=== PATIENT | male | born 2000 | race American Indian/Alaskan Native ===

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

== ENCOUNTER 2020-04-14 12:31 | Emergency (ER) | payer MEDICAID ==
[2020-04-14 12:34] VITALS: BP 114/53
--- NOTE | 2020-04-14 12:47 | Event Note ---
ED Screening Note ED Screening Note: WAS WORKING OUT AND FELT POP IN HIS BACK WHEN DOING PUSH UPS HES BEEN LIFTING A LOT TOO MUCH EARLIER THIS WEEK HE ALSO INJURED SHOULDER LIFTING HE NOW IS HAVING TAKING DEEP BREATH This initial assessment/diagnostic orders/clinical plan/treatment(s) is/are subject to change based on patients health status, clinical progression and re- assessment by fellow clinical providers in the ED. Further treatment and workup at subsequent clinical providers discretion. Patient/guardian urged not to elope from the ED as their condition may be serious if not clinically assessed and managed. Initial orders include: XRAY TO RO FX/ PNEUMO Vital Signs 04/14/20 12:32 Temperature 98.8 F Pulse Rate 59 L Respiratory 16 Rate Blood Pressure 114/53 [Right] O2 Sat by Pulse 99 Oximetry
--- NOTE | 2020-04-14 13:31 | XRay Report ---
THORACIC SPINE 3 VIEWS INDICATION / CLINICAL INFORMATION: SOB P FEELING A POP IN HIS THORACIC SPINE. COMPARISON: None available. FINDINGS: VERTEBRAE: No fracture. No significant malalignment. DISC SPACES:No significant abnormality. ADDITIONAL FINDINGS: None. IMPRESSION: 1. No significant abnormality. Signer Name: Jimenez Chaudhary MD Signed: 04/14/2020 1:27 PM Workstation Name: [id number]
--- NOTE | 2020-04-14 13:32 | XRay Report ---
CHEST 2 VIEWS INDICATION / CLINICAL INFORMATION: SOB. COMPARISON: None available. FINDINGS: SUPPORT DEVICES: None. HEART / MEDIASTINUM: No significant abnormality. LUNGS / PLEURA: No significant pulmonary or pleural abnormality. No pneumothorax. ADDITIONAL FINDINGS: No significant additional findings. IMPRESSION: 1. No acute findings. Signer Name: Jimenez Chaudhary MD Signed: 04/14/2020 1:27 PM Workstation Name: [id number]
--- NOTE | 2020-04-14 14:07 | Emergency Department Report ---
ED Back Pain/Injury HPI - General Chief Complaint: Back Pain/Injury Stated Complaint: BACK STRAIN Time Seen by Provider: 04/14/20 12:44 Source: patient Limitations: No Limitations - History of Present Illness Initial Comments: This is a pleasant 19-year-old male presents emergency department with chief complaint of pain in the left shoulder as well as the left latissimus dorsi area. Patient reports he was doing push-ups and felt a pop and some pain in his shoulder followed by pain in the left side over the LAT area. He reports since then he has been having some dull achy pain he rates as a 6 out of 10 denies any radiating pain. He denies any additional injuries. Denies any known past medical history, current medication use or known allergies to medications. - Related Data Previous Rx's Medication Instructions Recorded Last Taken Type Ibuprofen [Motrin] 400 mg PO Q8H PRN #12 tablet 03/06/16 Unknown Rx methylPREDNISolone [Medrol] 4 mg PO DAILY #1 tab.ds.pk 03/06/16 Unknown Rx Naproxen [Naprosyn TAB] 500 mg PO BID #20 tablet 04/14/20 Unknown Rx Allergies Allergy/AdvReac Type Severity Reaction Status Date / Time No Known Allergies Allergy Unverified 03/06/16 13:08 ED Review of Systems ROS: Stated complaint: BACK STRAIN Other details as noted in HPI Comment: All other systems reviewed and negative Constitutional: denies: chills, fever Eyes: denies: eye pain, eye discharge, vision change ENT: denies: ear pain, throat pain Respiratory: denies: cough, shortness of breath, wheezing Cardiovascular: denies: chest pain, palpitations Endocrine: no symptoms reported Gastrointestinal: denies: abdominal pain, nausea, diarrhea Genitourinary: denies: urgency, dysuria Musculoskeletal: as per HPI, back pain, arthralgia. denies: joint swelling Skin: denies: rash, lesions Neurological: denies: headache, weakness, paresthesias Psychiatric: denies: anxiety, depression Hematological/Lymphatic: denies: easy bleeding, easy bruising ED Past Medical Hx - Past Medical History Previous Medical History?: No - Surgical History Past Surgical History?: No - Family History Family history: no significant - Social History Smoking Status: Never Smoker Substance Use Type: None - Medications Home Medications: Home Medications Medication Instructions Recorded Confirmed Last Taken Type Ibuprofen [Motrin] 400 mg PO Q8H PRN #12 tablet 03/06/16 Unknown Rx methylPREDNISolone [Medrol] 4 mg PO DAILY #1 tab.ds.pk 03/06/16 Unknown Rx Naproxen [Naprosyn TAB] 500 mg PO BID #20 tablet 04/14/20 Unknown Rx ED Physical Exam - General Limitations: No Limitations General appearance: alert, in no apparent distress - Head Head exam: Present: atraumatic, normocephalic - Eye Eye exam: Present: normal appearance, PERRL, EOMI Pupils: Present: normal accommodation - ENT ENT exam: Present: normal exam, normal orophraynx, mucous membranes moist - Neck Neck exam: Present: normal inspection, full ROM. Absent: tenderness, meningismus - Respiratory Respiratory exam: Present: normal lung sounds bilaterally. Absent: respiratory distress, wheezes, rales, rhonchi, stridor - Cardiovascular Cardiovascular Exam: Present: regular rate, normal rhythm, normal heart sounds. Absent: systolic murmur, diastolic murmur, rubs, gallop - GI/Abdominal GI/Abdominal exam: Present: soft, normal bowel sounds. Absent: distended, tenderness, guarding, rigid - Rectal Rectal exam: Present: deferred - Extremities Exam Extremities exam: Present: normal inspection, full ROM, other (There is no pain with Vega sign of the left shoulder, negative ). Absent: tenderness, calf tenderness - Back Exam Back exam: Present: normal inspection, full ROM, tenderness (There is mild tenderness to the left latissimus dorsi area at the level of the thoracic spine. No midline thoracic spine tenderness. This extends into the left serratus anterior muscle area) - Neurological Exam Neurological exam: Present: alert, oriented X3, normal gait. Absent: motor sensory deficit - Psychiatric Psychiatric exam: Present: normal affect, normal mood - Skin Skin exam: Present: warm, dry, intact, normal color. Absent: rash ED Course Vital Signs 04/14/20 12:32 Temperature 98.8 F Pulse Rate 59 L Respiratory 16 Rate Blood Pressure 114/53 [Right] O2 Sat by Pulse 99 Oximetry ED Medical Decision Making - Radiology Data Radiology results: report reviewed X-ray of the thoracic spine was ordered in triage and unremarkable per radiology X-ray of the chest PA and lateral was ordered in triage and unremarkable per radiology - Medical Decision Making Patient is nontoxic in no acute distress. Vitals are stable. Chest x-ray and thoracic x-ray were ordered in triage and unremarkable. The patient had tenderness over the left latissimus muscle. Suspect is likely due to muscle straining and recommended anti-inflammatories and rest. Patient also reports some left shoulder pain although the shoulder exam was relatively normal I recommended follow-up with orthopedics as needed rest and anti-inflammatories. Return to the emerge department any changing worsening symptoms. He verbalized understanding the diagnosis, treatment plan and follow-up instructions and all of his questions were answered. - Differential Diagnosis Strain, sprain, fracture Critical care attestation.: If time is entered above; I have spent that time in minutes in the direct care of this critically ill patient, excluding procedure time. ED Disposition Clinical Impression: Left shoulder strain Qualifiers: Encounter type: initial encounter Qualified Code(s): S46.912A - Strain of unspecified muscle, fascia and tendon at shoulder and upper arm level, left arm, initial encounter Acute thoracic myofascial strain Qualifiers: Encounter type: initial encounter Qualified Code(s): S29.019A - Strain of muscle and tendon of unspecified wall of thorax, initial encounter Disposition: DC-01 TO HOME OR SELFCARE Is pt being admited?: No Condition: Stable Instructions: Muscle Strain (ED) Prescriptions: Naproxen [Naprosyn TAB] 500 mg PO BID #20 tablet Referrals: PRIMARY CARE, [Primary Care Provider] - 3-5 Days Time of Disposition: 14:07
== END 2020-04-14 14:21 | disposition home or self-care (01) ==
LOC: ED 12:31
DX: S46.912A Strain of unspecified muscle, fascia and tendon at shoulder and upper arm level, left arm, initial encounter (principal); S29.012A Strain of muscle and tendon of back wall of thorax, initial encounter; Z79.1 Long term (current) use of non-steroidal anti-inflammatories (NSAID); Z79.899 Other long term (current) drug therapy; X58.XXXA Exposure to other specified factors, initial encounter; Y93.B2 Activity, push-ups, pull-ups, sit-ups; Y92.89 Other specified places as the place of occurrence of the external cause; Y99.8 Other external cause status
CPT/HCPCS: 71046; 72070; 99283